=== PATIENT | female | born 1960 | race Two or more races ===

== ENCOUNTER 2017-08-20 13:31 | Inpatient (IN) | payer BC ==
[~2017-08-20] VITALS: Ht 154.9 cm; Wt 75.0 kg
--- NOTE | 2017-08-20 14:10 | NUR ---
PRESENTS TO ER STATING "I WAS SENT BY DR MUNIZ TO BE EVALUATED FOR COUGH AND SOB X SATURDAY" PATIENT IS A/OX 4. BREATHING EVEN AND UNLABORED, BUT STILL HAS COUGH. NO DISTRESS NOTED. VITALS STABLE. SAFETY AND COMFORT MEASURES IN PLACE. AWAITING MD ORDERS.
--- NOTE | 2017-08-20 14:40 | NUR ---
NEW IV STARTED ON RAC, 20G, BLOOD DRAWN AND SENT TO LAB.
[2017-08-20 14:52] LABS: HEMATOCRIT 35 % (33-45); HEMOGLOBIN 11.6 g/dL (11.5-14.8); MEAN CORPUSCULAR HEMOGLOBIN 29 PG (26.0-33.0); MEAN CORPUSCULAR HGB CONC 34 g/dl (31.0-36.0); MEAN CORPUSCULAR VOLUME 87 fL (82-100); PLATELET COUNT (AUTO) 310 /CMM (150-450); RDW COEFFICIENT OF VARIATION 14.1 (11.5-15.0); RED BLOOD CELL COUNT(AUTO) 3.98 MIL/uL (4.0-5.2); WHITE BLOOD COUNT (AUTO) 7.8 K/uL (4.3-11.0)
[2017-08-20 14:59] LABS: CARBON DIOXIDE 28 mmol/L (21-32); CHLORIDE 103 mmol/L (98-107); GLUCOSE 131 mg/dL (74-106); POTASSIUM 4.4 mmol/L (3.5-5.1); SODIUM SERUM 138 mmol/L (136-145); UREA NITROGEN, BLOOD 15 mg/dL (7-18)
[2017-08-20] MEDS ORDERED: methylPREDNISolone SOD SUCC 125 MG/2ML VIAL IV ONE (15:00)
[2017-08-20] MEDS ORDERED: IV D5/ 0.9% NACL 1,000 ML IV PRN (15:00)
[2017-08-20] MEDS ORDERED: ALBUTEROL FS 2.5 MG/3 ML VIAL.NEB CONTNEB ONE (15:00)
[2017-08-20] MEDS: AZELASTINE NASAL SPRAY 30 ML BOTTLE NS SCH (15:00)
[2017-08-20] MEDS ORDERED: methylPREDNISolone SOD SUCC 125 MG/2ML VIAL ONE (15:03)
[2017-08-20 15:05] LABS: ALANINE AMINOTRANSFERASE 50 U/L (12-78); ALBUMIN 3.3 g/dL (3.4-5.0); ALKALINE PHOSPHATASE 43 U/L (46-116); ASPARTATE AMINOTRANSFERASE 16 U/L (15-37); BILIRUBIN,DIRECT 0.1 mg/dL (0.0-0.2); BILIRUBIN,TOTAL 0.2 mg/dL (0.2-1.0); TOTAL PROTEIN, SERUM 7.3 g/dL (6.4-8.2)
[2017-08-20 15:06] LABS: INR 0.85 (0.85-1.15)
[2017-08-20 15:07] LABS: TROPONIN I < 0.017 ng/mL (0.00-0.056)
[2017-08-20 15:22] LABS: LYMPHOCYTES % (MANUAL) 7 % (16-48); MONOCYTES % (MANUAL) 1 % (0-11.0); NEUTROPHILS % (MANUAL) 92 (42-76)
[2017-08-20] MEDS ORDERED: ALBUTEROL FS 2.5 MG/3 ML VIAL.NEB ONE ×2 (15:22→16:36)
[2017-08-20] MEDS ORDERED: IPRATROPIUM NEB FS 0.5 MG/2.5 ML AMPUL.NEB ONE ×3 (15:22→16:36)
[2017-08-20] MEDS ORDERED: ALBUTEROL FS 2.5 MG/0.5 ML VIAL.NEB NEB ONE (15:30)
--- NOTE | 2017-08-20 15:34 | NUR ---
RT AT BEDSIDE FOR BREATHING TX.
[2017-08-20] MEDS: IPRATROPIUM NEB FS 0.5 MG/2.5 ML AMPUL.NEB NEB SCH ×4 (15:35→23:30)
[2017-08-20] MEDS: IPRATROPIUM NEB FS 0.5 MG/2.5 ML AMPUL.NEB NEB ONE ×2 (16:15→16:18)
[2017-08-20] MEDS ORDERED: AZIT250T13 PO (16:18)
[2017-08-20] MEDS ORDERED: PRED10TA PO (16:18)
[2017-08-20] MEDS ORDERED: LATA2.5D7 EACHEYE (16:18)
[2017-08-20] MEDS ORDERED: ASPI-1152 PO (16:18)
[2017-08-20] MEDS ORDERED: BUDE10.2 IH (16:18)
[2017-08-20] MEDS ORDERED: MAGN400T6 PO (16:18)
[2017-08-20] MEDS ORDERED: VALS160T28 PO (16:18)
[2017-08-20] MEDS ORDERED: ALBU8.5H8 IH (16:18)
[2017-08-20] MEDS ORDERED: FAMO20TA8 PO (16:18)
[2017-08-20] MEDS ORDERED: DILT180C66 PO (16:18)
[2017-08-20] MEDS: ALBUTEROL FS 2.5 MG/0.5 ML VIAL.NEB NEB SCH ×3 (16:50→23:30)
[2017-08-20 16:58] LABS: APPEARANCE,URINE CLEAR (CLEAR); BILIRUBIN,URINE NEGATIVE (NEGATIVE); BLOOD, URINE TRACE-INTA Ery/uL (NEGATIVE); COLOR,URINE YELLOW (YELLOW); KETONES,URINE NEGATIVE (NEGATIVE); LEUKOCYTE ESTERASE ,URINE NEGATIVE (NEGATIVE); NITRITE, URINE NEGATIVE (NEGATIVE); PH,URINE 7.5 (5.0-8.0); PROTEIN,URINE NEGATIVE (NEGATIVE); UGLUCOSE NEGATIVE (NEGATIVE); UROBILINOGEN,URINE 0.2 EU/dL (0.2)
[2017-08-20] MEDS ORDERED: FAMOTIDINE (20 MG) 20 MG TABLET PO ONE (17:00)
[2017-08-20] MEDS ORDERED: THEOPHYLLINE ANHYDROUS 300 MG TAB.SR.12H PO SCH (17:00)
[2017-08-20 17:08] LABS: BACTERIA,URINE None seen /HPF (None Seen); SQUAMOUS EPITHELIAL CELL,UR Rare /HPF (None Seen); WBC,URINE NONE SEEN /HPF (0-3)
--- NOTE | 2017-08-20 17:30 | NUR ---
REPORT GIVEN TO NEHEMIAS DÍAZ FOR SILVIA.
[2017-08-20] MEDS ORDERED: methylPREDNISolone SOD SUCC 125 MG/2ML VIAL IV SCH (18:00)
[2017-08-20] MEDS ORDERED: LEVOFLOXACIN (500MG) 500 MG TABLET PO ONE (18:00)
[2017-08-20] MEDS ORDERED: TERBUTALINE SULFATE 1 MG/ML VIAL SQ PRN (18:00)
--- NOTE | 2017-08-20 18:20 | NUR ---
RN NOTES PATIENT AWAKE ALERT AND VERBALLY RESPONSIVE, ABLE TO MAKE NEEDS KNOWN. RESPIRATIONS EVEN AND UNLABORED, CONTINUED ON PAIN MANAGEMENT ORDERED, DENIES PAIN AT THIS TIME. IV ACCESS TO RIGHT AC, NO REDNESS OR INFILTRATION NOTED. , KEPT CLEAN DRY AND COMFORTABLE, SAFETY MEASURES IN PLACE, DR WYATT MADE AWARE OF PTS ARRIVAL AND MED RECON, ENDORSED TO NEXT SHIFT FOR CONTINUITY OF CARE AND CARRYING OUT ORDERS
--- NOTE | 2017-08-20 18:34 | NUR ---
RN NOTES 1500 NASAL NON ADMINISTERED PT ARRIVED AT UNIT AT 1820
--- NOTE | 2017-08-20 19:00 | NUR ---
TELE/RN OPENING NOTES RECEIVED PATIENT IN BED, REPORT GIVEN BY AM RN PATIENT WAS BROUGHT FROM ER ON A GURNEY. DAVID STAPLETON, ORIENTED X3, REPORTED THAT SHE HAD APPOINTMENT [facility] OF DR MUNIZ, AND HAD EXACERVATION DUE TO ASTHMA WAS INSTRUCTED TO GO TO ER FOR MILD DISTRESS, , ALSO REORTEDGREED NASAL MUCUS SCAB IN NOSE, MD AWARE, GLAUCOMA, HTN, FIBROMYALGIA, PREVIOUS HOSPITALISED 2 WEEKS AGO FOR URI, ON TELE MONITORING AT IN 90'S, HOME MEDICATION RECONCILED, MEDS TO BE SENT TO PHARMACY, AMBULATES, WITH REGULAR DIET, REQUIRE BREATHING TX, WILL CONTINUE TO PROVIDE CARE, ROOM ORIENTATION, DISCUSSED PLAN OF CARE, MD RECONCILED MEDS AND GIVEN ORDER.
[2017-08-20] MEDS ORDERED: ONDANSETRON HCL/PF 4 MG/2 ML VIAL IVP PRN (19:30)
[2017-08-20] MEDS ORDERED: ZOLPIDEM TARTRATE 5 MG TABLET PO PRN (19:30)
[2017-08-20] MEDS ORDERED: MAGNESIUM HYDROXIDE 30 ML UDC PO PRN (19:30)
[2017-08-20] MEDS ORDERED: ALBUTEROL FS 2.5 MG/0.5 ML VIAL.NEB NEB SCH (19:30)
[2017-08-20] MEDS ORDERED: IPRATROPIUM NEB FS 0.5 MG/2.5 ML AMPUL.NEB NEB SCH (19:30)
[2017-08-20] MEDS ORDERED: Z GUARD REMEDY 2 OZ OINT TP PRN (19:30)
[2017-08-20] MEDS ORDERED: HYDROCODONE/APAP 5/325MG 1 EACH TABLET PO PRN (19:30)
[2017-08-20] MEDS ORDERED: ACETAMINOPHEN 325 MG TABLET PO PRN (19:30)
[2017-08-20 20:00] VITALS: BP 121/77
[2017-08-20 20:30] VITALS: BP 121/77
[2017-08-20] MEDS: methylPREDNISolone SOD SUCC 125 MG/2ML VIAL IV SCH (21:58)
[2017-08-20] MEDS: MONTELUKAST SODIUM (10MG) 10 MG TABLET PO SCH (21:59)
[2017-08-20] MEDS: AZITHROMYCIN 250 MG TABLET PO SCH (21:59)
[2017-08-20] MEDS: ENOXAPARIN SODIUM 40 MG/0.4 ML DISP.SYRIN SQ SCH (22:00)
[2017-08-21] VITALS: BP 110/69
[2017-08-21] MEDS: ALBUTEROL FS 2.5 MG/0.5 ML VIAL.NEB NEB SCH ×8 (02:00→23:29)
[2017-08-21] MEDS: IPRATROPIUM NEB FS 0.5 MG/2.5 ML AMPUL.NEB NEB SCH ×8 (02:00→23:29)
[2017-08-21 04:00] VITALS: BP 123/77
[2017-08-21] MEDS: methylPREDNISolone SOD SUCC 125 MG/2ML VIAL IV SCH ×3 (05:30→21:05)
--- NOTE | 2017-08-21 06:31 | NUR ---
320-1 TELE/RN NOTES PATIETN ABLE TO SLEEP DURING THE NIGHT, ON BREATHING TX, TELE MONITORING SR IN 90'S, SKIN WARM TO TOUCH, RESPIRATIONS EVEN AND UNLABORED , ABLE TO AMBULATES, BRP, CALL LIGHTS WITHIN REACH, TAYA IN LOCK POSITION WILL CONTINUE TO MONITOR, WILL ENROSE TO AM RN FOR SILVIA.
--- NOTE | 2017-08-21 07:00 | NUR ---
RN NOTES INSERTED IV PERIPHERAL ON PT'S LFA G#24 AND DISCONTINUED IVP LINE ON PT'S RAC PER PATIENT IT IS UNCOMFORTABLE AND SHE IS RIGHT HANDED. PT TOLERATED PROCEDURE WELL, NOTED NEW IV PERIPHERAL LINE WITH GOOD BLOOD RETURN, FLUSHED WITH 10 CC NS, PATENT AND INTACT. WILL ENDORSE TO PRIMARY CARE NURSE FOR CONTINUITY OF CARE.
--- NOTE | 2017-08-21 07:30 | NUR ---
FILTER TANK TENDER NOTES PT IN BED, AWAKE, ALERT AND ORIENTED, RESPIRATIONS NORMAL AND NOT LABORED, CALL LIGHT WITHIN REACH, [facility] COMPLAINT OF NASAL SINUS PAIN 08/10, PT INFORMED OF PLAN OF CARE, VERBALIZED UNDERSTANDING.
[2017-08-21 08:00] VITALS: BP 147/89
[2017-08-21 08:00] LABS: BILIRUBIN,TOTAL 0.3 mg/dL (0.2-1.0); CALCIUM, SERUM 9.1 mg/dL (8.5-10.1); MAGNESIUM 2.1 mg/dL (1.8-2.4); PHOSPHORUS 3.9 mg/dL (2.5-4.9); POTASSIUM 4.2 mmol/L (3.5-5.1); TOTAL PROTEIN, SERUM 6.8 g/dL (6.4-8.2)
[2017-08-21 08:02] LABS: HEMATOCRIT 33 % (33-45); HEMOGLOBIN 10.9 g/dL (11.5-14.8); LYMPHOCYTES # (AUTO) 0.4 /CMM (0.8-4.8); LYMPHOCYTES % (AUTO) 4.1 % (20.0-44.0); MEAN CORPUSCULAR HEMOGLOBIN 30 PG (26.0-33.0); MEAN CORPUSCULAR HGB CONC 33 g/dl (31.0-36.0); MEAN CORPUSCULAR VOLUME 88 fL (82-100); MONOCYTES % (AUTO) 0.4 % (2.0-12.0); NEUTROPHILS # (AUTO) 9.3 /CMM (1.8-8.9); NEUTROPHILS % (AUTO) 95.5 % (43.0-81.0); PLATELET COUNT (AUTO) 294 /CMM (150-450); RDW COEFFICIENT OF VARIATION 14.8 (11.5-15.0); RED BLOOD CELL COUNT(AUTO) 3.72 MIL/uL (4.0-5.2); WHITE BLOOD COUNT (AUTO) 9.8 K/uL (4.3-11.0)
[2017-08-21 08:11] LABS: THYROID STIMULATING HORMONE 0.214 uIU/mL (0.358-3.74)
[2017-08-21] MEDS ORDERED: THEOPHYLLINE ANHYDROUS 300 MG TAB.SR.12H PO SCH (09:00)
[2017-08-21] MEDS ORDERED: methylPREDNISolone SOD SUCC 125 MG/2ML VIAL IV SCH (09:00)
[2017-08-21] MEDS ORDERED: FLUTICASONE/SALMETEROL DISKUS IH SCH (09:00)
[2017-08-21] MEDS ORDERED: DILTIAZEM HCL CD 180 MG PO SCH (09:00)
[2017-08-21] MEDS: AZELASTINE NASAL SPRAY 30 ML BOTTLE NS SCH ×3 (10:27→16:39)
[2017-08-21] MEDS: FAMOTIDINE (20 MG) 20 MG TABLET PO SCH ×2 (10:27→16:39)
[2017-08-21] MEDS: FLUTICASONE/VILANTEROL 1 EACH BLST.W.DEV IH SCH (10:27)
[2017-08-21] MEDS: VALSARTAN 80 MG TABLET PO SCH (10:28)
[2017-08-21] MEDS: ASPIRIN EC 81 MG TABLET.DR PO SCH (10:28)
[2017-08-21 11:32] VITALS: BP 117/83
--- NOTE | 2017-08-21 12:31 | NUR ---
STUDENT FINANCE ADVISOR NOTES PT IN BED, AWAKE, ALERT AND ORIENTED, PLEASANT AND COOPERATIVE TO STAFF, COMPLETED CT SCAN OF SINUSES, TOLERATED PROCEDURE WELL, CALL LIGHT WITHIN REACH, NEEDS ATTENDED.
[2017-08-21] MEDS ORDERED: THEOPHYLLINE TAB 24HR 400 MG TAB.SR. PO ONE (13:30)
[2017-08-21 16:00] VITALS: BP 119/70
--- NOTE | 2017-08-21 18:15 | NUR ---
LOG ROLLER NOTES PT IN BED, AWAKE, ALERT AND ORIENTED, NO COMPLAINT OF PAIN AT THIS TIME, BREATHING PATTERN NORMAL AND NOT LABORED, CALL LIGHT WITHIN REACH, PM MEDS GIVEN, RECEIVED BREATHING TREATMENTS ORDERED, ALL NEEDS ATTENDED.
--- NOTE | 2017-08-21 19:30 | NUR ---
GLASSIE OPENING NOTES: PATIENT SITTING UP ON BED, AOX4, ON ROOM AIR, BREATHING EVEN AND UNLABORED, BUT NOTED COUGHING AND EXPIRATORY WHEEZING. PATIENT COMPLAINS THAT SHE FEELS LIGHTHEADED EVERY TIME SHE COUGHS. PATIENT ON TELE MONITORING: SR AT RATE OF 118. PIV OVER LAC G 20 INTACT AND PATENT TO FLUSH. PROVIDED FOR COMFORT AND SAFETY. BED IN LOWEST AND LOCKED POSITION, SIDERAILS UP X 3,CALL LIGHT WITHIN REACH. WILL CONT TO MONITOR.
[2017-08-21] MEDS: IV NS 0.9% 1,000 ML IV PRN (19:54)
[2017-08-21 20:00] VITALS: BP 120/18
[2017-08-21] MEDS: AZITHROMYCIN 250 MG TABLET PO SCH (20:00)
[2017-08-21] MEDS: MONTELUKAST SODIUM (10MG) 10 MG TABLET PO SCH (21:03)
[2017-08-21] MEDS: LATANOPROST EYE DROP 0.005% 2.5 ML BOTTLE EACHEYE SCH (21:03)
[2017-08-21] MEDS: ENOXAPARIN SODIUM 40 MG/0.4 ML DISP.SYRIN SQ SCH (21:05)
[2017-08-22] VITALS (26 sets, daily range): BP systolic 107–152; BP diastolic 60–90
[2017-08-22] MEDS: IPRATROPIUM NEB FS 0.5 MG/2.5 ML AMPUL.NEB NEB SCH ×5 (01:43→19:23)
[2017-08-22] MEDS: ALBUTEROL FS 2.5 MG/0.5 ML VIAL.NEB NEB SCH ×3 (01:43→07:35)
--- NOTE | 2017-08-22 03:15 | NUR ---
CEPHALOMETRIC TECHNICIAN SAID THAT PT'S HR SUDDENLY ELEVATED TO 160S. CHECKED ON PATIENT, PT NOW SITTING ON BED, STATES, "MY HEART RATE MUST BE UP." PATIENT'S RR AT 22, NOTED TO BE COUGHING. ON O2 AT 2 LPM. VS CHECKED AT 137/77, O2 SAT 99%, HR: 179. CALLED FOR STAT EKG.
--- NOTE | 2017-08-22 03:16 | NUR ---
RAPID RESPONSE CALLED. CHARGE NURSE JOANNE, 3 WEST STAFF NOW AT BEDSIDE. RT KARELY TOOK EKG: AFLUTTER AT RATE OF 190S. RAPID RESPONSE TEAM: ARJUN REEDER AND ER STAFF, ARJUN LERNER INSTALLATION SPECIALIST CAME TO BEDSIDE.
--- NOTE | 2017-08-22 03:19 | NUR ---
DOUGIE OSBORNE NP CALLED, ORDER MADE FOR CARDIZEM 10 MG IV NOW, THEN CARDIZEM DRIP TO START AT 5 MG/HR. ASKED IF TRANSFER TO ICU, PER BLACKTOP PAVER OPERATOR, TRANSFER TO [facility]. RN KARINA MADE AWARE. TO [facility] RM 109. CARDIZEM 10 MG SLOW IV PUSH GIVEN ORDERED.
[2017-08-22] MEDS ORDERED: DILTIAZEM HCL 25 MG IV ONE ×2 (03:21→03:47)
--- NOTE | 2017-08-22 03:25 | NUR ---
CARDIZEM 10 MG SIVP GIVEN, BP: 139/89, HR: 200S.
--- NOTE | 2017-08-22 03:28 | NUR ---
PT TRANSFERRED TO [facility] VIA ACLS PROTOCOL.
[2017-08-22] MEDS ORDERED: DILTIAZEM HCL 25 MG IV IV ONE ×2 (03:30→04:00)
--- NOTE | 2017-08-22 03:40 | NUR ---
PATIENT FOR CARDIZEM IV TITRATION. LILLI, ICU INSIDE PARTS SALES, ABLE TO TALK TO DOUGIE BOYER. PT TO BE TRANSFERRED TO ICU RM 253
--- NOTE | 2017-08-22 03:45 | NUR ---
SECOND DOSE OF CARDIZEM 10 MG IV PUSH GIVEN HERE AT [facility], HR STILL AT 180S.
--- NOTE | 2017-08-22 03:49 | NUR ---
PATIENT TRANSFERRED TO ICU RM 253 VIA ACLS TRANSPORT.
--- NOTE | 2017-08-22 03:55 | NUR ---
PT NOW TRANSFERRED TO ICU RM 253, PT ON O2 AT 2 LPM VIA NC, AOX4, APPEARS SLIGHTLY ANXIOUS. VS FF: HR: 185, BP: 141/80, RR: 22, TEMP : 97.9, O2 SAT: 98%. REPORT GIVEN TO INSTRUMENT ASSEMBLY SUPERVISOR, AMY, FOR SILVIA.
[2017-08-22] MEDS ORDERED: DILTIAZEM HCL 50 MG IV IV ONE (04:00)
[2017-08-22] MEDS ORDERED: DILTIAZEM HCL IV 125 MG in IV D5W 100 ML IV PRN (04:00)
--- NOTE | 2017-08-22 04:00 | NUR ---
Received patient from [facility] S/P DIALS SUPERVISOR for SVT 180's-190's.Patient A/O X 4.Moves all extremities.Little anxious emotional support rendered.Scope remains on SVT 180's.Cardizem gtt started and 5 mg and will titrate accordingly.Denies chest pain only lightheaded.With O2 2L NC sating 99%.Initial physical assessment done.Call light within easy for safety with instructions.Continue monitoring.
--- NOTE | 2017-08-22 04:06 | NUR ---
Patient converted to ST 106.Voided per bed vega adequate amount.Perineal care done.
[2017-08-22 04:09] LABS: CALCIUM, SERUM 8.9 mg/dL (8.5-10.1); CREATININE 1.2 mg/dL (0.6-1.3); MAGNESIUM 1.8 mg/dL (1.8-2.4); POTASSIUM 3.5 mmol/L (3.5-5.1)
[2017-08-22] MEDS: methylPREDNISolone SOD SUCC 125 MG/2ML VIAL IV SCH ×3 (04:54→20:59)
--- NOTE | 2017-08-22 06:00 | NUR ---
Patient OOB to BS commode with BM.Bed bath rendered and complete linens changed. Verbalized comfort.Patient tele shows SR 90's and BP stable.Cardizem gtt titrated off. Due medication administered.Will endorse to am shift RN for SILVIA.
--- NOTE | 2017-08-22 07:41 | NUR ---
INITIAL SKID STRAPPER NOTE RCVD PT AWAKE AND ALERT, SHOWING NO S/O DISTRESS/PAIN REPORTED AT THIS TIME. ST ON TELE. TOLERATING O2 VIA NC WITH SATURATION >95%. TRIAL ON RA PT TOLERATING WELL. PER REPORT PT ABLE TO TRANSFER TO BS WITH SUPERVISION. IV SITES C/D/I/PATENT. NO S/O INFILTRATION/PHLEBITIS OBSERVED UPON FLUSHING. WILL CONTINUE TO MONITOR PT FOR SAFETY AND COMFORT. CALL LIGHT WITHIN REACH. BED IN LOW AND LOCKED POSITION.
[2017-08-22] MEDS: FAMOTIDINE (20 MG) 20 MG TABLET PO SCH ×2 (08:19→18:50)
[2017-08-22] MEDS: ASPIRIN EC 81 MG TABLET.DR PO SCH (08:19)
[2017-08-22] MEDS: VALSARTAN 80 MG TABLET PO SCH (08:20)
[2017-08-22] MEDS: AZELASTINE NASAL SPRAY 30 ML BOTTLE NS SCH ×2 (08:20→18:49)
[2017-08-22] MEDS: FLUTICASONE/VILANTEROL 1 EACH BLST.W.DEV IH SCH (08:20)
[2017-08-22] MEDS: IV NS 0.9% 1,000 ML IV PRN (08:28)
[2017-08-22] MEDS ORDERED: THEOPHYLLINE TAB 24HR 400 MG TAB.SR. PO SCH (09:00)
[2017-08-22] MEDS: DILTIAZEM HCL CD 240 MG PO SCH (10:39)
--- NOTE | 2017-08-22 11:31 | NUR ---
TRANSFER TO [facility] RN NOTE PT TRANSFERRED TO [facility] IN STABLE CONDITION. AWAKE AND ALERT SHOWING NO S/O DISTRESS. ST ON TELE. ON RA TOLERATING WELL. IV SITES C/D/I/PATENT. NO S/O INFILTRATION/PHLEBITIS OBSERVED UPON FLUSHING LINES. IVF DISCONTINUED. PT'S CARE ENDORSED TO ARJUN MENDEZ. PT TRANSPORTED VIA MONITORED BED WITH RN AT BEDSIDE, ALL BELONGINGS ACCOUNTED FOR AND TRANSFERRED WITH PT.
[2017-08-22] MEDS ORDERED: ALBUTEROL FS 2.5 MG/0.5 ML VIAL.NEB NEB SCH (13:30)
--- NOTE | 2017-08-22 14:09 | NUR ---
RT NOTE: ALBUTEROL NOT GIVEN DUE ADVERSE REACTIONS LAST NIGHT. NURSE(ANDREA) NOTIFIED AND WILL CONTACT FOR ORDERS. WILL CONTINUE TO MONITOR.
[2017-08-22] MEDS: LEVALBUTEROL HCL NEB 1.25 MG/0.5 ML VIAL.NEB IH SCH (19:24)
--- NOTE | 2017-08-22 20:34 | NUR ---
INITIAL TEL RN NOTE RCVD PT AWAKE AND ALERT, SHOWING NO S/O DISTRESS/PAIN REPORTED AT THIS TIME. ST ON TELE. TOLERATING O2 VIA NC WITH SATURATION >92%. TRIAL ON RA PT TOLERATING WELL. PER REPORT PT ABLE TO TRANSFER TO BS WITH SUPERVISION. IV SITES C/D/I/PATENT. NO S/O INFILTRATION/PHLEBITIS OBSERVED UPON FLUSHING. WILL CONTINUE TO MONITOR PT FOR SAFETY AND COMFORT. CALL LIGHT WITHIN REACH. BED IN LOW AND LOCKED POSITION.
[2017-08-22] MEDS: AZITHROMYCIN 250 MG TABLET PO SCH (20:59)
[2017-08-22] MEDS: MONTELUKAST SODIUM (10MG) 10 MG TABLET PO SCH (21:01)
[2017-08-22] MEDS: ENOXAPARIN SODIUM 40 MG/0.4 ML DISP.SYRIN SQ SCH (21:21)
[2017-08-22] MEDS: LATANOPROST EYE DROP 0.005% 2.5 ML BOTTLE EACHEYE SCH (21:22)
[2017-08-23] VITALS: BP 123/74
[2017-08-23] MEDS: LEVALBUTEROL HCL NEB 1.25 MG/0.5 ML VIAL.NEB IH SCH ×3 (01:41→13:18)
[2017-08-23] MEDS: IPRATROPIUM NEB FS 0.5 MG/2.5 ML AMPUL.NEB NEB SCH ×3 (01:41→13:18)
[2017-08-23 03:00] VITALS: BP 123/74
[2017-08-23 04:00] VITALS: BP 101/58
[2017-08-23] MEDS: methylPREDNISolone SOD SUCC 125 MG/2ML VIAL IV SCH ×2 (05:06→13:46)
--- NOTE | 2017-08-23 06:26 | NUR ---
CLOSING TEL RN NOTE ENDORSED PT AWAKE AND ALERT, SHOWING NO S/O DISTRESS/PAIN REPORTED AT THIS TIME. ST ON TELE. TOLERATING O2 VIA NC WITH SATURATION >92%. TRIAL ON RA PT TOLERATING WELL. PER REPORT PT ABLE TO TRANSFER TO BS WITH SUPERVISION. IV SITES C/D/I/PATENT. NO S/O INFILTRATION/PHLEBITIS OBSERVED UPON FLUSHING. WILL CONTINUE TO MONITOR PT FOR SAFETY AND COMFORT. CALL LIGHT WITHIN REACH. BED IN LOW AND LOCKED POSITION.
[2017-08-23 08:00] VITALS: BP 131/87
[2017-08-23] MEDS: FAMOTIDINE (20 MG) 20 MG TABLET PO SCH (08:28)
[2017-08-23] MEDS: VALSARTAN 80 MG TABLET PO SCH (08:28)
[2017-08-23] MEDS: DILTIAZEM HCL CD 240 MG PO SCH (08:29)
[2017-08-23] MEDS: ASPIRIN EC 81 MG TABLET.DR PO SCH (08:29)
[2017-08-23] MEDS: AZELASTINE NASAL SPRAY 30 ML BOTTLE NS SCH (08:30)
[2017-08-23 12:00] VITALS: BP 118/71
[2017-08-23] MEDS ORDERED: ENOX40DI SQ (14:27)
[2017-08-23] MEDS ORDERED: IPRA0.2S9 NEB (14:27)
[2017-08-23] MEDS ORDERED: HYDR-3972 PO (14:27)
[2017-08-23] MEDS ORDERED: LEVA1.2524 IH (14:27)
[2017-08-23] MEDS ORDERED: AZIT250T PO (14:27)
[2017-08-23] MEDS ORDERED: MONT10TA22 PO (14:27)
[2017-08-23] MEDS ORDERED: methylPREDNISolone SOD SUCC IV (14:27)
[2017-08-23] MEDS ORDERED: DILT240C64 PO (14:27)
[2017-08-23] MEDS ORDERED: AZELASTINE HCL NS (14:27)
[2017-08-23] MEDS ORDERED: THEOPHYLLINE TAB 24HR 400 MG TAB.SR. PO SCH (14:30)
[2017-08-23] MEDS ORDERED: ALBUTEROL HALF STRENGTH 1.25 MG/3 ML VIAL.NEB NEB PRN (14:30)
--- NOTE | 2017-08-23 15:15 | NUR ---
RN NOTE PT DISCHARGED/TRANSFERRED TO [place], TO ROOM 503 B REPORT GIVEN TO CHITO RN, EXIT CARE DONE DISCHARGE INSTRUCTIONS PROVIDED, PT VERBALIZED UNDERSTANDING, TRANSFER PAPERS SIGNED, BELONGINGS LIST SIGNED, BELONGINGS PROVIDED TO PT, HOME MEDS GIVEN TO PT. IV LEFT IN PLACE. SKIN IS INTACT. PT LEFT VIA AMBULANCE, PT FAMILY AWARE.
== END 2017-08-23 15:15 | disposition short-term general hospital (02) | DRG 202 ==
LOC: ER 13:35 → TELE 17:45 → TELE-TD 08-22 03:35 → ICU 08-22 03:50 → TELE-TD 08-22 21:54 → TELE1 08-22 22:01 → TELE-TD 08-22 22:01 → TELE1 08-22 23:55 → TELE-TD 08-22 23:55 → TELE1 08-23 00:13 → TELE-TD 08-23 00:13 → TELE1 08-23 08:19
PROVIDERS: ADMIT Nurse Practitioner Acute Care; ATTEND Nurse Practitioner Acute Care
DX: J45.901 Unspecified asthma with (acute) exacerbation (principal); E44.0 Moderate protein-calorie malnutrition; E88.09 Other disorders of plasma-protein metabolism, not elsewhere classified; I48.91 Unspecified atrial fibrillation; H40.9 Unspecified glaucoma; I48.92 Unspecified atrial flutter; J34.2 Deviated nasal septum; M79.7 Fibromyalgia; I10 Essential (primary) hypertension; I25.10 Atherosclerotic heart disease of native coronary artery without angina pectoris; Z87.891 Personal history of nicotine dependence; Z98.51 Tubal ligation status; J32.0 Chronic maxillary sinusitis; Z68.31 Body mass index [BMI] 31.0-31.9, adult; J34.89 Other specified disorders of nose and nasal sinuses; T48.6X5A Adverse effect of antiasthmatics, initial encounter; Y92.89 Other specified places as the place of occurrence of the external cause; I34.1 Nonrheumatic mitral (valve) prolapse; I34.0 Nonrheumatic mitral (valve) insufficiency; J01.90 Acute sinusitis, unspecified
CPT/HCPCS: 36415; 70486-TC; 71045-TC; 80048-TC; 80053-TC; 80061-TC; 80076-TC; 81000-TC; 82785; 82962-TC; 83605-TC; 83735-TC; 84100-TC; 84439-TC; 84443-TC; 84480; 84484-TC; 85025-TC; 85730-TC; 87040-TC; 87081-TC; 87086-TC; 93307-TC; A4606; J1650; J2930; J3105; J3490; J7030; J7042; J7060; Z7610